=== PATIENT | female | born 1960 | race Caucasian/White ===

== ENCOUNTER 2018-11-30 09:18 | Emergency (ER) | payer BC, SELFPAY ==
[2018-11-30 09:20] VITALS: BP 150/87; PULSE 68; RESP 18; TEMP 36.7; O2SAT 99
--- NOTE | 2018-11-30 09:37 | DI.RAD.S_ITS ---
PROCEDURE: XR CHEST 1V INDICATIONS: chest pain TECHNIQUE: One view of the chest was acquired. COMPARISON: None. FINDINGS: Surgical changes and devices: None. Lungs and pleura: Lungs are clear. No pleural effusions or pneumothorax. Mediastinum: Mediastinal contours appear normal. Heart size is normal. Bones and chest wall: No suspicious bony lesions. Overlying soft tissues appear unremarkable. IMPRESSION: No acute cardiopulmonary findings. Dictated by: Ravinder Walters M.D. on 11/30/2018 at 9:21 Approved by: Ravinder Walters M.D. on 11/30/2018 at 9:22
[2018-11-30 10:02] VITALS: BP 123/84; PULSE 73; RESP 22; O2SAT 97
[2018-11-30 10:03] LABS: Add Manual Diff / Slide Review NO; Basophils Absolute Auto 100 /uL (0-100); Basophils Percent Auto 1.3 % (0-2); Eosinophils Absolute Auto 300 /uL (0-450); Eosinophils Percent Auto 3.8 % (2-4); Hematocrit 39.5 % (36-46); Hemoglobin 13.7 g/dL (12.0-16.0); Lymphocytes Absolute Auto 1800 /uL (1100-4500); Lymphocytes Percent Auto 25.2 % (25-40); Mean Corpuscular HGB Conc 34.6 % (30-36); Mean Corpuscular Hemoglobin 28.4 PG (26-34); Mean Corpuscular Volume 82.1 fL (80-100); Monocytes Absolute Auto 400 /uL (0-900); Monocytes Percent Auto 5.9 % (3-14); Neutrophils Absolute Auto 4600 /uL (1500-7000); Neutrophils Percent Auto 63.8 % (50-75); Platelet Count 236 X10^3/uL (150-400); Red Blood Cell Count 4.81 X10^6/uL (4.0-5.2); Red Cell Distribution Width 13.4 % (11.6-14.8); White Blood Cell Count 7.3 X10^3/uL (4.5-11.0)
[2018-11-30 10:08] LABS: HEMOLYSIS 21 (0-50)
[2018-11-30 10:09] LABS: Prothrombin Time 11.7 SECONDS (10.1-12.7)
[2018-11-30 10:12] LABS: PTT Partial Thromboplastin Tim 33 SECONDS (26.4-36.2)
[2018-11-30 10:14] LABS: Alanine Aminotransferase 22 IU/L (9-52); Albumin 4.4 g/dL (3.5-5.0); Albumin Globulin Ratio 1.6 (1.0-2.8); Alkaline Phosphatase 101 U/L (38-126); Aspartate Aminotransferase 25 IU/L (14-36); BUN Creatinine Ratio 22.5 (6-22); Bilirubin Total 0.6 mg/dL (0.2-1.3); Blood Urea Nitrogen 18 mg/dL (7-17); Calcium 9.9 mg/dL (8.4-10.2); Carbon Dioxide 27 mmol/L (22-32); Chloride 103 mmol/L (98-107); Creatine Kinase 89 U/L (30-135); Estimated Glomerular Filt Rate > 60.0 mL/min (>60); Globulin 2.8 g/dL (1.7-4.1); Glucose 101 mg/dL (70-100); Lipase 63 U/L (23-300); Magnesium 1.8 mg/dL (1.6-2.3); Potassium 4.5 mmol/L (3.4-5.1); Sodium 139 mmol/L (137-145); Total Protein 7.2 g/dL (6.3-8.2)
[2018-11-30 10:27] LABS: Troponin I < 0.012 ng/mL (0.01-0.034)
--- NOTE | 2018-11-30 10:50 | ED_ITS ---
HPI - Chest Pain General Chief Complaint: Chest Pain Stated Complaint: heavy on chest burping a lot comes and goes Time Seen by Provider: 11/30/18 09:32 Source: patient Mode of arrival: Ambulatory Limitations: no limitations History of Present Illness HPI narrative: Patient comes emergency department complaining of indigestion type symptoms. She states that she has been having this for the last 5 days, and that it seems to come randomly at rest. Patient states she walked on the treadmill yesterday and had no discomfort whatsoever. She states her most recent episode was this morning while standing in gnosticist, singing. Patient states that she notices a burning type of sensation in her mid chest, which lasts about 30 seconds to 1 minute and then spontaneously resolves. Patient has not found any specific trigger, and there is nothing specifically that she does to make the pain away. Patient denies other complaints at this time. She states she has no cardiac history, and is not a diabetic. She has a history of hypertension, but is well controlled on her current medication regimen. She has been told she has borderline elevated cholesterol. Patient states her father did have an CT in his 50s, but she has no other family members with history of coronary artery disease. No other complaints at this time. Patient does note she has a history of GERD, and has been treated with Prilosec on an ever y-other-day basis for this. She states that it seems to have been controlling the symptoms fairly well. Related Data Home Medications Medication Instructions Recorded Confirmed losartan 50 mg PO DAILY 11/30/18 11/30/18 omeprazole 20 mg PO Q OTHER DAY 11/30/18 11/30/18 Allergies Allergy/AdvReac Type Severity Reaction Status Date / Time cefuroxime [CEFUROXIME] Allergy Severe HIVES Unverified 05/22/17 12:02 Phenothiazines Allergy Severe SEVERE Unverified 05/22/17 12:02 [PHENOTHIAZINES] DYSTONIC REACTION WITH 1 COMPAZINE TAB prochlorperazine Allergy Unknown Verified 11/30/18 09:35 [From Compazine] Review of Systems Constitutional Constitutional: Denies chills, Denies fatigue, Denies fever(s), Denies frequent falls, Denies lethargy and Denies weakness Eyes Eyes: Denies change in vision, Denies eye discharge, Denies irritation and Denies loss of vision ENT Ears, Nose, Mouth, and Throat: Denies change in voice, Denies dizziness, Denies neck pain, Denies sore throat and Denies throat swelling Cardiovascular Cardiovascular: Reports chest pain, Denies irregular heart rhythm, Denies light headedness, Denies palpitations, Denies dyspnea, Denies dyspnea on exertion and Denies orthopnea Respiratory Respiratory: Denies cough, Denies dyspnea, Denies dyspnea on exertion and Denies wheezing Gastrointestinal Gastrointestinal: Denies abdominal pain, Denies change in bowel habits, Denies diarrhea, Denies nausea and Denies vomiting Genitourinary Genitourinary: Denies hematuria, Denies flank pain, Denies urinary incontinence and Denies urinary urgency Musculoskeletal Musculoskeletal: Denies back pain, Denies muscle weakness, Denies neck pain, Denies numbness and Denies tingling Integumentary/Breasts Skin/Breast: Denies pruritus, Denies erythema, Denies rash and Denies wounds Neurologic Neurologic: Denies behavioral changes, Denies confusion, Denies dizziness, Denies frequent falls, Denies loss of vision, Denies numbness, Denies tingling and Denies weakness Psychiatric Psychiatric: Denies anxiety, Denies behavioral changes, Denies confusion, Denies depression, Denies homicidal ideation and Denies suicidal ideation Endocrine Endocrine: Denies fatigue, Denies flushing and Denies palpitations Hematologic/Lymphatic Hematologic/Lymphatic: Denies easy bruising Allergic/Immunologic Allergic/Immunologic: Denies urticaria, Denies throat swelling and Denies wheezing Patient History Medical History (Updated 11/30/18 @ 10:56 by Jocelyn Colorado MD) Appendicitis (Acute) HTN (hypertension) (Acute) Surgical History History of appendectomy (Acute) Social History Smoking Status: Never smoker Social History Smoking Status: Never smoker alcohol intake frequency: 0-2 drinks per day Substance Use Type: does not use Exam Initial Vital Signs Initial Vital Signs: Vital Signs Temperature 98.1 F 11/30/18 09:20 Pulse Rate 68 11/30/18 09:20 Respiratory Rate 18 11/30/18 09:20 Blood Pressure 150/87 H 11/30/18 09:20 Pulse Oximetry 99 11/30/18 09:20 Const General: cooperative and well developed Nutritional Appearance: well nourished Orientation: alert, awake, oriented x3 and not confused [facility] Head: normocephalic and atraumatic Ears: external ears normal Nose: external nose normal and No nasal discharge Face and sinus: face symmetric and No dry mucous membranes Mouth: oral mucosae normal and moist mucous membranes Teeth and gingiva: dentition normal Eyes General: appearance normal, both eyes and all related structures Eyelids: eyelids normal Conjunctivae: conjunctivae normal Sclera: sclerae normal Pupils: PERRL EOM: EOM intact bilaterally Neck Neck: normal visual inspection, trachea midline, No lymphadenopathy, No midline deformity and No JVD Lymphatic: No lymphedema Chest Chest: normal inspection of the chest Resp Effort & Inspection: normal respiratory effort, able to speak in complete sentences, no respiratory distress and no use of accessory muscles Auscultation: clear to auscultation bilaterally, no rales, no rhonchi and no wheezes Cardio Rate: regular rate Rhythm: regular rhythm Heart Sounds: no click, no gallops, no murmurs and no rubs Pulses: normal peripheral pulses GI Inspection: non-distended Palpation: soft, no hepatosplenomegaly, No guarding, No pulsatile mass and No tender Back/Spine/Pelvis Back: No CVA tenderness Cervical Spine: cervical ROM normal and No pain with cervical ROM Thoracic/Lumbar Spine: thoracic and lumbar spine normal to inspection Skin General: no rashes or lesions noted, No jaundice and No petechiae Neuro General: alert, oriented x3, gait normal and no focal motor deficits Speech: speech normal Extrem General: full ROM, no clubbing, cyanosis or edema, no pedal edema and no calf te nderness Psych Appearance: well kempt Mental Status: mental status grossly normal Attitude: cooperative Thought Content: normal and suicidality Judgment: judgment good Course Course Course Narrative: Patient was worked up with labs, chest x-ray, and EKG, all of which were unremarkable. Patient was not symptomatic in the emergency department, and we have discussed the need for follow-up for this. Patient states she has a GI appointment coming up in a few days, and is encouraged to keep the appointment. We have discussed home management of symptoms in the usual indications for return. Orders Ordered: ED Orders 11/30/18 09:31 EKG-12 Lead Routine 11/30/18 09:37 XR chest 1V Stat 11/30/18 09:51 Complete Blood Count AUTO DIFF Stat Comprehensive Metabolic Panel Stat Lipase Stat Magnesium Stat Partial Thromboplastin Time Stat Prothrombin Time INR Stat Troponin & CK Cardiac Panel Stat Vital Signs Vital signs: Vital Signs - 8 hr 11/30/18 09:20 11/30/18 10:02 Temperature 98.1 F Pulse Rate 68 73 Respiratory Rate 18 22 Blood Pressure 150/87 H Blood Pressure [Right Arm] 123/84 Pulse Oximetry 99 97 MDM - Chest Pain Medical Records Data Attestation: I reviewed the patient's medical records. Lab Data Attestation: I reviewed the patient's lab results. Result diagrams: 11/30/18 09:51 11/30/18 09:51 Labs: Lab Results 11/30/18 11/30/18 11/30/18 Range/Units 09:51 09:51 09:51 WBC 7.3 (4.5-11.0) X10^3/uL RBC 4.81 (4.0-5.2) X10^6/uL Hgb 13.7 (12.0-16.0) g/dL Hct 39.5 (36-46) % MCV 82.1 (80-100) fL MCH 28.4 (26-34) PG MCHC 34.6 (30-36) % RDW 13.4 (11.6-14.8) % Plt Count 236 (150-400) X10^3/uL Neut % (Auto) 63.8 (50-75) % Lymph % (Auto) 25.2 (25-40) % [place] % (Auto) 5.9 (3-14) % Eos % (Auto) 3.8 (2-4) % Baso % (Auto) 1.3 (0-2) % Neut # (Auto) 4600 (6416-5953) /uL Lymph # (Auto) 1800 (6363-3715) /uL [place] # (Auto) 400 (0-900) /uL Eos # (Auto) 300 (0-450) /uL Baso # (Auto) 100 (0-100) /uL PT 11.7 (10.1-12.7) SECONDS INR 1.0 (0.9-1.3) APTT 33 (26.4-36.2) SECONDS Sodium 139 (137-145) mmol/L Potassium 4.5 (3.4-5.1) mmol/L Chloride 103 (98-107) mmol/L Carbon Dioxide 27 (22-32) mmol/L BUN 18 H (7-17) mg/dL Creatinine 0.80 (0.52-1.04) mg/dL Estimated GFR > 60.0 (>60) mL/min BUN/Creatinine Ratio 22.5 H (6-22) Glucose 101 H (70-100) mg/dL Calcium 9.9 (8.4-10.2) mg/dL Magnesium 1.8 (1.6-2.3) mg/dL Total Bilirubin 0.6 (0.2-1.3) mg/dL AST 25 (14-36) IU/L ALT 22 (9-52) IU/L Alkaline Phosphatase 101 (38-126) U/L Total Creatine Kinase 89 (30-135) U/L CK-MB (CK-2) TNP CK-MB (CK-2) Rel Index TNP Troponin I < 0.012 (0.01-0.034) ng/mL Total Protein 7.2 (6.3-8.2) g/dL Albumin 4.4 (3.5-5.0) g/dL Globulin 2.8 (1.7-4.1) g/dL Albumin/Globulin Ratio 1.6 (1.0-2.8) Lipase 63 (23-300) U/L Imaging Data Chest x-ray: Radiologist's impression: PROCEDURE: XR CHEST 1V INDICATIONS: chest pain TECHNIQUE: One view of the chest was acquired. COMPARISON: None. FINDINGS: Surgical changes and devices: None. Lungs and pleura: Lungs are clear. No pleural effusions or pneumothorax. Mediastinum: Mediastinal contours appear normal. Heart size is normal. Bones and chest wall: No suspicious bony lesions. Overlying soft tissues appear unremarkable. IMPRESSION: No acute cardiopulmonary findings. Dictated by: Ravinder Walters M.D. on 11/30/2018 at 9:21 Approved by: Ravinder Walters M.D. on 11/30/2018 at 9:22 ECG Data Attestation: I personally reviewed and interpreted this ECG as follows: (See below) Interpretation: Twelve lead EKG performed November 30, 2018 at 9:31 a.m., as follows: Regular ventricular rhythm with a rate of 69 beats per minute [place] interval 196 millisecond QRS duration 89 millisecond QTC interval [address] T wave changes No ectopy Interpretation: Normal sinus rhythm; low QRS voltage in precordial leads; no signs of acute ischemia; borderline EKG as interpreted by ED MD. Discharge Plan Departure Patient Disposition: Home Clinical Impression: Atypical chest pain, Chronic GERD Discharge Date/Time: 11/30/18 11:19 Instructions: DI for Gastroesophageal Reflux Disease (GERD), DI for Atypical Chest Pain Activity Restrictions/Additional Instructions: Your labs look good. There is no evidence of a heart attack at this time. Your chest x-ray and EKG are also unremarkable. Please follow up with your primary care physician to schedule a stress test to definitively evaluate your chest discomfort. If you notice prolonged symptoms that do not resolve, or you noticed lightheadedness, shortness of breath, or other concerning symptoms, please return to the emergency department. Prescriptions: No Action losartan 50 mg tablet 50 mg PO DAILY RF: 0 omeprazole 20 mg capsule,delayed release(DR/EC) 20 mg PO Q OTHER DAY RF: 0 Referrals: Cecilia Boo PA-C [Primary Care Provider] -
== END 2018-11-30 11:19 | disposition home or self-care (01) ==
PROVIDERS: Emergency Provider Emergency Medicine; PCP Physician Assistant Medical
DX: R07.89 Other chest pain (principal); K21.9 Gastro-esophageal reflux disease without esophagitis
CPT/HCPCS: 36415; 71045; 80053; 82550; 83690; 83735; 84484; 85025; 85610; 85730; 93005; 99283; 99285

== ENCOUNTER → 2019-01-14 07:07 | Outpatient (CLI) | payer BC, SELFPAY ==
--- NOTE | 2019-01-14 08:14 | PM.TREADMILL ---
Cardiac Stress Test Report Referral & Results Date Patient Seen: 01/14/19 Time Patient Seen: 08:00 Requesting provider: Cecilia Boo Indication: Chest pain Rest ECG: NSR Procedure Note: Today following both written and verbal informed consent, the patient was exercised according to a standard Rubens protocol. The patient exercised for a total of 8 minutes 12 seconds achieving a maximum heart rate of 159. Patient's maximum systolic blood pressure was 170. This was an estimated 10.1 METs. No signs or symptoms of angina. No change in rhythm. CRESENCIO-10% on active scale. Normal heart rate and blood pressure response to exercise. Impression: Low probability for ischemia. Collier treadmill score 8 predicts 97% cardiac survival rate over 5 years. Please note: Actual ECG tracings can be found in the PACS system.
== END ==
PROVIDERS: PCP Physician Assistant Medical; Visit Provider Physician Assistant Medical
DX: R07.9 Chest pain, unspecified (principal)
CPT/HCPCS: 93016; 93017; 93018

== ENCOUNTER → 2020-05-20 15:26 | Outpatient (CLI) | payer BC, SELFPAY ==
[2020-05-20] MEDS: COVID-19 VACC, Ad26(JANSSEN)/PF 0.5 ML IM (15:33)
== END ==
PROVIDERS: PCP Physician Assistant Medical; Visit Provider Internal Medicine
DX: Z23 Encounter for immunization (principal)
CPT/HCPCS: 0031A; 91303